=== PATIENT | male | born 1995 | race Caucasian/White ===

== ENCOUNTER 2019-10-29 13:45 | Emergency (ER) | payer OTHER ==
[~2019-10-29] VITALS: Ht 167.6 cm; Wt 74.4 kg
[2019-10-29 14:23] LABS: HEMATOCRIT 44.5 % (42.0-52.0); HEMOGLOBIN 14.5 g/dl (13.5-17.5); MEAN CORPUSCULAR HGB CONC 32.6 g/dl (32.0-36.5); MEAN CORPUSCULAR VOLUME 92.1 fl (80.0-96.0); PLATELET COUNT, AUTOMATED 233 10^3/uL (150-450); RED BLOOD COUNT 4.83 10^6/uL (4.30-6.10)
[2019-10-29 14:34] LABS: INR 1.06; PROTHROMBIN TIME 13.5 SECONDS (11.8-14.0)
[2019-10-29 14:48] LABS: BLOOD UREA NITROGEN 12 MG/DL (7-18); CALCIUM LEVEL 9.7 MG/DL (8.5-10.1); CARBON DIOXIDE LEVEL 29 MEQ/L (21-32); CHLORIDE LEVEL 109 MEQ/L (98-107); CREATININE FOR GFR 0.78 MG/DL (0.70-1.30); GLOMERULAR FILTRATION RATE > 60.0 (>60); GLUCOSE, FASTING 81 MG/DL (70-100); POTASSIUM SERUM 4.2 MEQ/L (3.5-5.1); SODIUM LEVEL 142 MEQ/L (136-145)
[2019-10-29] MEDS ORDERED: ACYC400T PO (15:32)
[2019-10-29] MEDS ORDERED: TEARSOL10 OP (15:32)
[2019-10-29] MEDS ORDERED: PRED20TA PO (15:32)
--- NOTE | 2019-10-29 15:37 | REP ---
Clinical: Facial Droop. Comparison: None. Findings: The ventricles, sulci, and cisterns are normal in position and appearance. Ramires-white differentiation is maintained. No acute intracranial hemorrhage, mass/mass effect, pathology or trauma/injury. No evidence for acute infarction. No extra-axial fluid collection. Calvarium is intact. Paranasal sinuses and mastoid air cells are clear. Impression: Normal noncontrast head CT. No evidence for acute intracranial pathology or trauma/injury. Electronically Signed by Dewey Blair MD 10/29/2019 03:28 P
[2019-10-29 15:39] VITALS: BP 132/81
== END 2019-10-29 15:40 | disposition home or self-care (01) ==
LOC: M ED 13:45
DX: G51.0 Bell's palsy (principal)

== ENCOUNTER 2020-05-15 06:22 | Emergency (ER) | payer OTHER ==
[~2020-05-15] VITALS: Ht 167.6 cm; Wt 76.0 kg
[~2020-05-15 06:22] MED LIST: ACYC400T PO; PRED20TA PO; TEARSOL10 OP
[2020-05-15] MEDS ORDERED: NS 500 ML IV ONE (07:00)
[2020-05-15 07:23] LABS: BASO # 0.1 10^3/uL (0.0-0.2); BASO % 1.5 % (0.0-1.0); EOS # 0.4 10^3/uL (0.0-0.5); EOS % 5.4 % (0.0-3.0); HEMATOCRIT 46.7 % (42.0-52.0); LYMPH # 2.5 10^3/uL (1.5-5.0); MEAN CORPUSCULAR HEMOGLOBIN 29.8 pg (27.0-33.0); MEAN CORPUSCULAR HGB CONC 32.1 g/dl (32.0-36.5); MEAN CORPUSCULAR VOLUME 92.7 fl (80.0-96.0); MONO # 0.6 10^3/uL (0.0-0.8); MONO % 8.6 % (0.0-5.0); NEUTROPHILS # 3.1 10^3/uL (1.5-8.5); PLATELET COUNT, AUTOMATED 202 10^3/uL (150-450); RED BLOOD COUNT 5.04 10^6/uL (4.30-6.10); WHITE BLOOD COUNT 6.6 10^3/uL (4.0-10.0)
[2020-05-15 07:49] LABS: ALBUMIN 4.2 GM/DL (3.2-5.2); ALT/SGPT 24 U/L (12-78); BILIRUBIN,DIRECT 0.1 MG/DL (0.0-0.2); BILIRUBIN,TOTAL 0.5 MG/DL (0.2-1.0); BLOOD UREA NITROGEN 12 MG/DL (7-18); CALCIUM LEVEL 9.5 MG/DL (8.5-10.1); CARBON DIOXIDE LEVEL 26 MEQ/L (21-32); CHLORIDE LEVEL 108 MEQ/L (98-107); CK-MB VALUE MASS < 1.0 NG/ML (<3.6); CPK CREATINE PHOSPHOKINASE 79 U/L (39-308); CREATININE FOR GFR 0.78 MG/DL (0.70-1.30); GLOMERULAR FILTRATION RATE > 60.0 (>60); GLUCOSE, FASTING 100 MG/DL (70-100); LIPASE 117 U/L (73-393); MB/CK RELATIVE INDEX 1.27 (< OR =4); POTASSIUM SERUM 4.3 MEQ/L (3.5-5.1); SODIUM LEVEL 139 MEQ/L (136-145); TOTAL PROTEIN 7.8 GM/DL (6.4-8.2); TROPONIN I < 0.02 NG/ML (< 0.10)
[2020-05-15 08:30] LABS: AMPHETAMINES LEVEL URINE NEGATIVE (NEGATIVE); BARBITURATES URINE NEGATIVE (NEGATIVE); BENZODIAZEPINES URINE NEGATIVE (NEGATIVE); CANNABINOIDS URINE POSITIVE (NEGATIVE); COCAINE METABOLITE URINE NEGATIVE (NEGATIVE); METHADONE URINE NEGATIVE (NEGATIVE); OPIATES URINE NEGATIVE (NEGATIVE); PHENCYCLIDINE URINE NEGATIVE (NEGATIVE)
[2020-05-15 09:02] VITALS: BP 132/83
[2020-05-15] MEDS ORDERED: ONDA4TAB6 PO (09:06)
--- NOTE | 2020-05-15 09:06 | REPVR ---
PROCEDURE INFORMATION: Exam: XR Chest, 2 Views Exam date and time: 05/15/2020 7:50 AM Age: 24 years old Clinical indication: Cough and dyspnea; Additional info: Abdominal pain TECHNIQUE: Imaging protocol: XR of the chest Views: 2 views. COMPARISON: No relevant prior studies available. FINDINGS: Lungs: Interstitial prominence, without acute infiltrate. Pleural space: No pleural effusion. Heart/Mediastinum: No cardiomegaly. Bones/joints: Unremarkable. IMPRESSION: Interstitial prominence, without acute infiltrate. Electronically signed by: Lee Gray On 05/15/2020 09:05:54 AM
--- NOTE | 2020-05-15 20:49 | ECGEPIP ---
[facility] - ED Test Date: 2020-05-15 Pat Name: RYDER MOSCOSO Department: Room: - Gender: Male Program Support Assistant: jose armando : 1995 Requested By: MIRYAM Jarrett PA-C Order Number: [id number] Reading MD: Carline Hidalgo Measurements Intervals [place] Rate: 58 P: 48 SC: 169 QRS: 34 QRSD: 114 T: 57 QT: 391 QTc: 385 Interpretive Statements SINUS BRADYCARDIA WITH MARKED SINUS ARRHYTHMIA MODERATE INTRAVENTRICULAR CONDUCTION DELAY NO PRIOR Electronically Signed on 05-15-2020 20:48:45 EDT by Carline Hidalgo
== END 2020-05-15 09:08 | disposition home or self-care (01) ==
LOC: M ED 06:22
DX: F12.188 Cannabis abuse with other cannabis-induced disorder (principal); R07.89 Other chest pain; R00.1 Bradycardia, unspecified; F17.200 Nicotine dependence, unspecified, uncomplicated